=== PATIENT | female | born 1950 | race African-American/Black ===

== ENCOUNTER 2018-08-24 01:09 | Inpatient (IN) | payer MEDICARE ==
[~2018-08-24] VITALS: Ht 165.1 cm; Wt 55.8 kg
--- NOTE | 2018-08-24 01:30 | NUR ---
PT BIBRA FROM [facility] C/O BILAT' EYE PAIN X 1 DAY, AND BACK PAIN, VS STABLE PLACED ON ER BED 4, AWAITING FOR EVAL.
--- NOTE | 2018-08-24 01:50 | NUR ---
SEEN AND EVAL DONE BY ER DR KAPLAN ORDERS ENTERED.
[2018-08-24] MEDS ORDERED: methylPREDNISolone SOD SUCC 125 MG/2ML VIAL IV ONE (02:00)
[2018-08-24] MEDS ORDERED: methylPREDNISolone SOD SUCC 125 MG/2ML VIAL ONE (02:19)
[2018-08-24 02:42] LABS: BASOPHILS # (AUTO) 0.1 /CMM (0.0-0.2); BASOPHILS % (AUTO) 0.6 % (0.0-2.0); EOSINOPHILS % (AUTO) 0.8 % (0.0-6.0); HEMATOCRIT 33 % (33-45); HEMOGLOBIN 10.8 g/dL (11.5-14.8); LYMPHOCYTES # (AUTO) 1.7 /CMM (0.8-4.8); LYMPHOCYTES % (AUTO) 15.8 % (20.0-44.0); MEAN CORPUSCULAR HGB CONC 33 g/dl (31.0-36.0); MEAN CORPUSCULAR VOLUME 96 fL (82-100); MONOCYTES # (AUTO) 1.4 /CMM (0.1-1.30); NEUTROPHILS # (AUTO) 7.6 /CMM (1.8-8.9); NEUTROPHILS % (AUTO) 69.8 % (43.0-81.0); PLATELET COUNT (AUTO) 365 /CMM (150-450); RED BLOOD CELL COUNT(AUTO) 3.46 MIL/uL (4.0-5.2); WHITE BLOOD COUNT (AUTO) 10.9 K/uL (4.3-11.0)
[2018-08-24 02:45] LABS: CALCIUM, SERUM 8.6 mg/dL (8.5-10.1); CARBON DIOXIDE 23 mmol/L (21-32); CHLORIDE 105 mmol/L (98-107); CREATININE 1.7 mg/dL (0.6-1.3); GLUCOSE 106 mg/dL (74-106); POTASSIUM 3.6 mmol/L (3.5-5.1); SODIUM SERUM 141 mmol/L (136-145); UREA NITROGEN, BLOOD 52 mg/dL (7-18)
--- NOTE | 2018-08-24 02:50 | NUR ---
PATIENT TBA TELE 316-2.
[2018-08-24 03:00] LABS: ALANINE AMINOTRANSFERASE 30 U/L (12-78); ALBUMIN 3.3 g/dL (3.4-5.0); ALKALINE PHOSPHATASE 112 U/L (46-116); ASPARTATE AMINOTRANSFERASE 31 U/L (15-37); B-TYPE NATRIURETIC PEPTIDE 9391 PG/ML (0-125); BILIRUBIN,DIRECT 0.2 mg/dL (0.0-0.2); BILIRUBIN,TOTAL 0.5 mg/dL (0.2-1.0); TOTAL PROTEIN, SERUM 7.7 g/dL (6.4-8.2)
[2018-08-24] MEDS ORDERED: IV NS 0.9% 1,000 ML IV SCH (03:00)
[2018-08-24] MEDS ORDERED: MAGNESIUM HYDROXIDE 30 ML UDC PO PRN (03:00)
[2018-08-24] MEDS ORDERED: MAG HYDROX/AL HYDROX/SIMETH 30 ML UDC PO PRN (03:00)
[2018-08-24] MEDS ORDERED: Z GUARD REMEDY 2 OZ OINT TP PRN (03:00)
[2018-08-24] MEDS ORDERED: ACETAMINOPHEN 325 MG TABLET PO PRN (03:00)
--- NOTE | 2018-08-24 04:12 | NUR ---
CALLED FOR REPORT GIVEN TO [facility] ADMITTING, NOTIFIED NO IV ACCESS, ER DR KAPLAN CALLED DR BOYLE FOR MIDLINE INSERTION.
--- NOTE | 2018-08-24 04:45 | NUR ---
DR BOYLE CALLED BACK OKAY TO TRANSFER PT WITHOUT IV LINE, MIDLINE IN AM, WILL ENDORSE TO F/U.
[2018-08-24] MEDS ORDERED: CEFTRIAXONE 1 G VIAL ONE (04:52)
[2018-08-24] MEDS ORDERED: LIDOCAINE 1% INJ 50 ML MDV IJ ONE (04:53)
[2018-08-24] MEDS ORDERED: LIDOCAINE /MPF 1% VIAL 5 ML VIAL ONE (04:54)
[2018-08-24] MEDS ORDERED: CEFTRIAXONE 1 G VIAL IM SCH (05:00)
[2018-08-24] MEDS ORDERED: FUROSEMIDE 40 MG/4 ML VIAL IV STA (06:28)
[2018-08-24] MEDS ORDERED: METRONIDAZOLE 500MG/ NS 100ML 100 ML IV ONE ×2 (06:30→06:44)
[2018-08-24] MEDS: AZITHROMYCIN 500 MG in IV D5W 250 ML IV SCH (06:30)
[2018-08-24] MEDS ORDERED: FUROSEMIDE 40 MG/4 ML VIAL ONE (06:44)
[2018-08-24] MEDS ORDERED: AZITHROMYCIN 500 MG VIAL ONE (06:44)
--- NOTE | 2018-08-24 06:50 | NUR ---
PT TAKEN TO XR CHEST.
[2018-08-24 06:55] LABS: ABG BASE EXCESS -4.3 mmol/L; ABG OXYGEN SATURATION 93.8 % (92.0-98.5); ABG PCO2 43.5 mmHg (35.0-45.0); ABG PH 7.315 (7.350-7.450); ABG PO2 102.8 mmHg (75.0-100.0); AaDO2 74.5 mmHg; COHb 0.3 % (0.5-1.5); MetHb 0.2 % (0.0-1.5); O2Hb 93.3 % (94.0-97.0); SITE, ABG Right Radial; VENT MODE, BG NC 3L
--- NOTE | 2018-08-24 07:08 | NUR ---
PTBROUGHT BACK FROM XR CHEST FOR CENTRAL LINE PLACEMENT CONFIRMATION, AWAITING MD TO READ IMAGES.
--- NOTE | 2018-08-24 07:35 | NUR ---
REPORT GIVEN TO ED FOR TOSHIA.
--- NOTE | 2018-08-24 07:41 | NUR ---
CENTRAL LINE PLACEMENT CONFIRMED BY XR CHEST AT BEDSIDE.
[2018-08-24] MEDS ORDERED: DIPH25CA6 PO (07:49)
[2018-08-24] MEDS ORDERED: DICL100G16 TP (07:49)
[2018-08-24] MEDS ORDERED: DUEXIS PO (07:49)
[2018-08-24] MEDS ORDERED: OXYC30TA86 PO (07:49)
[2018-08-24] MEDS ORDERED: METO25TA20 PO (07:49)
[2018-08-24] MEDS ORDERED: POTA10TA15 PO (07:49)
[2018-08-24] MEDS ORDERED: LORA1TAB PO (07:49)
[2018-08-24] MEDS ORDERED: OXYC-128 PO (07:49)
[2018-08-24] MEDS ORDERED: LATA2.5D7 EACHEYE (07:49)
[2018-08-24] MEDS ORDERED: ZOLP5TAB8 PO (07:49)
[2018-08-24] MEDS ORDERED: MIRT45TA83 PO (07:49)
[2018-08-24] MEDS ORDERED: DIFL5DRO OP (07:49)
[2018-08-24] MEDS ORDERED: OXYC-133 PO (07:49)
[2018-08-24] MEDS ORDERED: HYDR59LO5 TP (07:49)
[2018-08-24] MEDS ORDERED: LACT1CAP71 PO (07:49)
[2018-08-24] MEDS ORDERED: PROM25TA15 PO (07:49)
[2018-08-24] MEDS ORDERED: CODE118S4 PO (07:49)
[2018-08-24] MEDS ORDERED: DRON10CA8 PO (07:49)
[2018-08-24] MEDS ORDERED: DULO60CA63 PO (07:49)
[2018-08-24] MEDS ORDERED: NEPA1.7D OP (07:49)
[2018-08-24] MEDS ORDERED: MULT-1210 PO (07:49)
[2018-08-24] MEDS ORDERED: MAGN400T26 PO (07:49)
[2018-08-24] MEDS ORDERED: METH20TA9 PO (07:49)
[2018-08-24] MEDS ORDERED: CARI350T27 PO (07:49)
[2018-08-24] MEDS ORDERED: FLUO15CR2 TP (07:49)
[2018-08-24] MEDS ORDERED: ONDA4TAB5 PO (07:49)
[2018-08-24] MEDS ORDERED: LIDO30CR47 TP (07:49)
[2018-08-24] MEDS ORDERED: FURO-145 PO (07:49)
[2018-08-24] MEDS ORDERED: GABA-534 PO (07:49)
[2018-08-24 08:00] VITALS: BP 145/83
--- NOTE | 2018-08-24 08:15 | NUR ---
ENDORSED THE FLAGYL TO SHANDA HAINES AND TOSHIA.
--- NOTE | 2018-08-24 08:15 | NUR ---
DIRECTOR CUSTOMER NOTES RECEIVED PT FROM E.R. STAFF VIA [facility], PT IS AWAKE AND ALERT, VERBALLY RESPONSIVE, ASSISTED TO BED, MADE COMFORTABLE, NO COMPLAINT OF PAIN, RESPIRATIONS NORMAL AND NOT LABORED, PLACED ON O2 AT 2LPM , ROOM SET UP ORIENTATION PROVIDED TO PT, VERBALIZED UNDERSTANDING, CENTRAL LINE AT RIGHT IJ INTACT, NO BLEEDING NOTED, CALL LIGHT PLACED WITHIN REACH, TELEPHONE UNIT PROVIDED TO PT, ASSISTED WITH BEDPAN, KEPT COMFORTABLE.
[2018-08-24] MEDS: MIRTAZAPINE 45 MG TABLET PO SCH ×2 (09:00→21:26)
[2018-08-24] MEDS ORDERED: FUROSEMIDE 40 MG/4 ML VIAL IV SCH (09:00)
--- NOTE | 2018-08-24 09:00 | NUR ---
SCIENCE AND OPERATIONS OFFICER NOTES SHAYYN SCHEDULED AT , PHARMACY TO CHANGE TIME.
[2018-08-24] MEDS: CODEINE/PROMETHAZINE HCL 5 ML UDC PO PRN ×2 (10:31→18:57)
[2018-08-24] MEDS: CARISOPRODOL 350 MG TABLET PO SCH ×4 (10:34→21:26)
[2018-08-24] MEDS: GABAPENTIN 300 MG CAPSULE PO SCH ×2 (10:34→16:12)
[2018-08-24] MEDS: METOPROLOL TARTRATE 25 MG TABLET PO SCH ×2 (10:39→16:21)
[2018-08-24] MEDS: IV NS 0.9% 1,000 ML IV PRN ×2 (11:39→21:27)
[2018-08-24 12:00] VITALS: BP 120/77
--- NOTE | 2018-08-24 12:00 | NUR ---
SENIOR PHARMACY TECHNICIAN NOTES PT IN BED, ASLEEP, EASY TO AROUSE, ALERT AND ORIENTED, SWELLING TO LIPS AND ORBITAL AREA SUBSIDING, IV FLUIDS INFUSING WELL, SEEN BY DR. RIVERA, PLAN OF CARE DISCUSSED WITH PT, VERBALIZED UNDERSTANDING.
[2018-08-24] MEDS: methylPREDNISolone SOD SUCC 40 MG/ML VIAL IV SCH (12:34)
[2018-08-24] MEDS: DRONABINOL (2.5 MG) 2.5 MG CAPSULE PO SCH ×2 (12:34→16:12)
[2018-08-24] MEDS: ONDANSETRON HCL/PF 4 MG/2 ML VIAL IVP PRN (12:45)
[2018-08-24] MEDS: LATANOPROST EYE DROP 0.005% 2.5 ML BOTTLE EACHEYE SCH ×2 (15:53→21:27)
[2018-08-24 16:00] VITALS: BP 126/78
--- NOTE | 2018-08-24 18:23 | NUR ---
RN MS CLOSING NOTES Patient remains in bed, sleeping but easy to arouse, alert awake and oriented. No sob or ventilatory distress noted, patient denies pain. IV fluids infusing well, patient able to verbalize needs and wants. Call light within reach.
[2018-08-24] MEDS: HYDROCODONE/APAP 5/325MG 1 EACH TABLET PO PRN (18:47)
--- NOTE | 2018-08-24 19:30 | NUR ---
ADMINISTRATIVE MANAGER NOTE: PATIENT RESTING IN BED, NO ACUTE DISTRESS NOTED. BREATHING EVEN AND UNLABORED, NO SOB NOTED. IV TO RIJ IN PLACE. BED LOCKED AND IN LOWEST POSITION, CALL LIGHT IN REACH. WILL CONTINUE TO MONITOR.
[2018-08-24] MEDS: oxyCODONE HCL SR 10MG TAB.SR.12H PO SCH (21:26)
[2018-08-24] MEDS ORDERED: ZOLPIDEM TARTRATE 5 MG TABLET PO SCH (22:00)
[2018-08-25] VITALS: BP 122/55
[2018-08-25 04:03] VITALS: BP 107/67
[2018-08-25] MEDS: LORAZEPAM 1 MG TABLET PO PRN (04:16)
[2018-08-25] MEDS: ONDANSETRON HCL/PF 4 MG/2 ML VIAL IVP PRN (04:16)
[2018-08-25] MEDS: CEFTRIAXONE 1 G in IV D5W 50 ML IV SCH (04:16)
--- NOTE | 2018-08-25 04:30 | NUR ---
SURFACING TECHNICIAN NOTE: PATIENT COMPLAINS OF NAUSEA AND BEING ANXIOUS, ZOFRAN 4MG IV GIVEN PER MD ORDER AND ATIVAN 1MG ORAL GIVEN PER MD ORDER. WILL CONTINUE TO MONITOR.
[2018-08-25] MEDS: AZITHROMYCIN 500 MG in IV D5W 250 ML IV SCH (05:47)
--- NOTE | 2018-08-25 06:10 | NUR ---
MOLDING SUPERVISOR NOTE: PATIENT RESTING IN BED, NO ACUTE DISTRESS NOTED. BREATHING EVEN AND UNLABORED, NO SOB NOTED. IV TO RIJ IN PLACE, INFUSING NS AT 100ML/HR. BED LOCKED AND IN LOWEST POSITION, CALL LIGHT IN REACH. WILL ENDORSE TO DAY NURSE TO CONTINUE WITH PLAN OF CARE.
[2018-08-25 07:05] LABS: BASOPHILS # (AUTO) 0.1 /CMM (0.0-0.2); BASOPHILS % (AUTO) 0.5 % (0.0-2.0); EOSINOPHILS % (AUTO) 0.3 % (0.0-6.0); HEMATOCRIT 34 % (33-45); HEMOGLOBIN 10.8 g/dL (11.5-14.8); LYMPHOCYTES # (AUTO) 3.3 /CMM (0.8-4.8); LYMPHOCYTES % (AUTO) 25.9 % (20.0-44.0); MEAN CORPUSCULAR HGB CONC 32 g/dl (31.0-36.0); MEAN CORPUSCULAR VOLUME 95 fL (82-100); MONOCYTES # (AUTO) 0.8 /CMM (0.1-1.30); MONOCYTES % (AUTO) 6.7 % (2.0-12.0); NEUTROPHILS # (AUTO) 8.4 /CMM (1.8-8.9); NEUTROPHILS % (AUTO) 66.6 % (43.0-81.0); PLATELET COUNT (AUTO) 354 /CMM (150-450); RED BLOOD CELL COUNT(AUTO) 3.55 MIL/uL (4.0-5.2); WHITE BLOOD COUNT (AUTO) 12.6 K/uL (4.3-11.0)
--- NOTE | 2018-08-25 07:20 | NUR ---
RN OPENING NOTES PT RESTING IN BED. NO APPARENT S/S OF PAIN, DISTRESS OR SOB AT THIS TIME. PT TELE MONITORED AT NSR RATE OF 80. PT HAS A RIGHT IJ IV INTACT AND RUNNING NS @100ML/HR. SAFETY PRECAUTIONS IN PLACE, BED IN LOWEST LOCKED POSITION, X2 SIDE RAILS UP AND CALL LIGHT WITHIN REACH. WILL CONTINUE TO MONITOR.
[2018-08-25 07:21] LABS: CALCIUM, SERUM 8.4 mg/dL (8.5-10.1); PHOSPHORUS 3.4 mg/dL (2.5-4.9); POTASSIUM 3.5 mmol/L (3.5-5.1)
--- NOTE | 2018-08-25 07:51 | NUR ---
RN CLOSING NOTES LATE NOTE: PT RESTING IN BED. NO APPARENT S/S OF PAIN, DISTRESS OR SOB. ALL PT NEEDS MET DURING SHIFT. PAIN MANAGEMENT THROUGH PERCOCET AND NORCO WELL SCHEDULED PAIN MEDICATIONS. PT HAS A RIGHT IJ IV INTACT. SAFETY PRECAUTIONS IN PLACE, BED IN LOWEST LOCKED POSITION, X2 SIDE RAILS UP AND CALL LIGHT WITHIN REACH. WILL ENDORSE TO ADJUNCT NURSING FACULTY NURSE FOR CONTINUITY OF CARE.
[2018-08-25 08:00] VITALS: BP 148/83
[2018-08-25] MEDS: methylPREDNISolone SOD SUCC 40 MG/ML VIAL IV SCH (09:19)
[2018-08-25] MEDS: GABAPENTIN 300 MG CAPSULE PO SCH ×2 (09:21→16:38)
[2018-08-25] MEDS: CARISOPRODOL 350 MG TABLET PO SCH ×4 (09:21→20:54)
[2018-08-25] MEDS: oxyCODONE HCL SR 10MG TAB.SR.12H PO SCH ×2 (09:21→22:38)
[2018-08-25] MEDS: DRONABINOL (2.5 MG) 2.5 MG CAPSULE PO SCH ×3 (09:23→16:38)
[2018-08-25] MEDS: METOPROLOL TARTRATE 25 MG TABLET PO SCH ×2 (09:23→16:34)
[2018-08-25] MEDS: CODEINE/PROMETHAZINE HCL 5 ML UDC PO PRN ×2 (11:07→21:04)
[2018-08-25] MEDS ORDERED: PROMETHAZINE HCL 25 MG TABLET PO PRN (12:00)
[2018-08-25] MEDS ORDERED: diphenhydrAMINE HCL 25 MG CAPSULE PO PRN (12:00)
[2018-08-25] MEDS ORDERED: oxyCODONE/APAP (5/325 MG) 1 UDTAB TABLET PO PRN (12:00)
[2018-08-25] MEDS ORDERED: ONDANSETRON HCL 4 MG/5 ML SOLUTION PO PRN (12:00)
[2018-08-25] MEDS: MAGNESIUM OXIDE 400 MG TABLET PO SCH (12:54)
[2018-08-25] MEDS: METHYLPHENIDATE HCL (10MG) 10 MG TABLET PO SCH ×2 (13:00→16:32)
--- NOTE | 2018-08-25 13:00 | NUR ---
RN NOTES CALLED PHARMACY TO FOLLOW UP WITH RITALIN ORDER. PER PHARMACY IT IS NOT STOCKED AT THIS HOSPITAL. MADE DR ZAPATA AWARE. WILL CONTINUE TO FOLLOW UP.
[2018-08-25 16:00] VITALS: BP 111/66
[2018-08-25] MEDS: oxyCODONE/APAP (5/325 MG) 1 UDTAB TABLET PO PRN (18:57)
--- NOTE | 2018-08-25 19:45 | NUR ---
MS RN NOTES RECEIVED ON BED A/O X4,ABLE TO VERBALIZED NEEDS,NOTED 75 TO 80% OF DINNER FOOD CONSUMED.WITH RIGHT IJ IN PLACE,INTACT AND PATENT,NS AT TKO RATE IN PROGRESS.BED ON LOWEST POSITION AND LOCKED.CALL LIGHT IN REACH,NEEDS ANTICIPATED.
[2018-08-25 20:00] VITALS: BP_SYST 106; BP_DIAS 53; BP_DIAS 55
--- NOTE | 2018-08-25 21:04 | NUR ---
MS RN NOTES C/O COUGH,PHENERGAN WITH CODEINE 5ML PO GIVEN ORDERED
[2018-08-25] MEDS: ZOLPIDEM TARTRATE 5 MG TABLET PO PRN (22:13)
[2018-08-25] MEDS: DULOXETINE HCL 30 MG CAPSULE.DR PO SCH (22:13)
[2018-08-25] MEDS: MIRTAZAPINE 45 MG TABLET PO SCH (22:13)
--- NOTE | 2018-08-25 22:13 | NUR ---
MS RN NOTES C/O INSOMNIA,AMBIEN 5MG PO GIVEN ORDERED.
[2018-08-25] MEDS: LATANOPROST EYE DROP 0.005% 2.5 ML BOTTLE EACHEYE SCH (22:35)
--- NOTE | 2018-08-26 02:00 | NUR ---
MS RN NOTES SLEEPING,KEPT WARM AND COMFORTABLE.
[2018-08-26] MEDS: CEFTRIAXONE 1 G in IV D5W 50 ML IV SCH (05:04)
--- NOTE | 2018-08-26 06:07 | NUR ---
MS RN NOTES IVF INFUSING,PAIN MANAGEMENT EFFECTIVE,POSSIBLE D/C TO [facility],DOESNT WANT TO GO BACK TO [facility].WILLL ENDORSE TO DAY NURSE FOR TOSHIA.
[2018-08-26] MEDS: AZITHROMYCIN 500 MG in IV D5W 250 ML IV SCH (06:17)
--- NOTE | 2018-08-26 06:44 | NUR ---
WOUND CARE CONSULT WOUND CARE RECEIVED CONSULT FOR RIGHT BIG TOE DISCOLORATION AND SWELLING. WOUND CARE WILL DEFER CONSULT AND TREATMENT PLANS TO PLASTIC SURGICAL TEAM WELL DPM DR HILL WHO ARE ALL CURRENTLY FOLLOWING THIS PATIENT. PATIENT WITH RYDER AT 18, ALL PRESSURE ULCER PREVENTION MEASURES ARE NOTED TO BE IN PLACE. WILL SEE PRN.
[2018-08-26] MEDS: CODEINE/PROMETHAZINE HCL 5 ML UDC PO PRN ×2 (06:59→23:00)
--- NOTE | 2018-08-26 07:00 | NUR ---
RN OPENING NOTES PT RESTING IN BED. NO APPARENT S/S OF PAIN, DISTRESS OR SOB AT THIS TIME. WILL CONTINUE PT PAIN MANAGEMENT. PT HAS A RIGHT IJ IV INTACT. SAFETY PRECAUTIONS IN PLACE, BED IN LOWEST LOCKED POSITION, X2 SIDE RAILS UP AND CALL LIGHT WITHIN REACH. WILL CONTINUE TO MONITOR.
[2018-08-26 08:00] VITALS: BP 134/93
[2018-08-26] MEDS: DRONABINOL (2.5 MG) 2.5 MG CAPSULE PO SCH ×3 (08:43→17:11)
[2018-08-26] MEDS: GABAPENTIN 300 MG CAPSULE PO SCH ×2 (08:43→17:12)
[2018-08-26] MEDS: methylPREDNISolone SOD SUCC 40 MG/ML VIAL IV SCH (08:43)
[2018-08-26] MEDS: CARISOPRODOL 350 MG TABLET PO SCH ×4 (08:43→20:28)
[2018-08-26] MEDS: MAGNESIUM OXIDE 400 MG TABLET PO SCH (08:44)
[2018-08-26] MEDS: oxyCODONE HCL SR 10MG TAB.SR.12H PO SCH ×2 (08:46→20:29)
[2018-08-26] MEDS: METOPROLOL TARTRATE 25 MG TABLET PO SCH ×2 (08:47→17:00)
[2018-08-26] MEDS: METHYLPHENIDATE HCL (10MG) 10 MG TABLET PO SCH ×3 (09:00→17:00)
[2018-08-26] MEDS: LORAZEPAM 1 MG TABLET PO PRN (12:31)
--- NOTE | 2018-08-26 14:17 | NUR ---
RN NOTES PER CASE MANAGEMENT REQUESTING FOR PSYCH EVAL, FOLLOWED UP WITH KELLE DUBON. PER JAGDISH OKAY TO ORDER EVAL.
--- NOTE | 2018-08-26 14:21 | NUR ---
RN NOTES PT REQUESTED PRN ATIVAN, ADMINISTERED WILL CONTINUE TO MONITOR.
[2018-08-26] MEDS: oxyCODONE/APAP (5/325 MG) 1 UDTAB TABLET PO PRN (14:27)
[2018-08-26 16:00] VITALS: BP 112/70
--- NOTE | 2018-08-26 18:59 | NUR ---
RN CLOSING NOTES PT RESTING IN BED. NO APPARENT S/S OF PAIN, DISTRESS OR SOB. ALL PT NEEDS MET DURING SHIFT. PAIN MANAGEMENT THROUGH PERCOCET WELL SCHEDULED PAIN MEDICATIONS. PT HAS A RIGHT IJ IV INTACT. SAFETY PRECAUTIONS IN PLACE, BED IN LOWEST LOCKED POSITION, X2 SIDE RAILS UP AND CALL LIGHT WITHIN REACH. WILL ENDORSE TO CARTON FORMING MACHINE OPERATOR NURSE FOR CONTINUITY OF CARE.
--- NOTE | 2018-08-26 19:40 | NUR ---
MS RN NOTES RECEIVED PATIENT AWAKE IN BED AND WATCHING TV WITH NO DISTRESS NOTED. CALL LIGHT WITHIN REACH. NO C/O PAIN OR DISCOMFORT. RIGHT IJ INTACT AND PATENT. BED IN LOW LOCK SETTING. ROOM FREE OF CLUTTER AND ALL BELONGINGS KEPT NEAR BEDSIDE. WILL CONTINUE TO MONITOR.
[2018-08-26 20:02] VITALS: BP 104/60
[2018-08-26] MEDS: ONDANSETRON HCL/PF 4 MG/2 ML VIAL IVP PRN (20:34)
[2018-08-26] MEDS: MIRTAZAPINE 45 MG TABLET PO SCH (21:38)
[2018-08-26] MEDS: DULOXETINE HCL 30 MG CAPSULE.DR PO SCH (21:38)
[2018-08-26] MEDS: LATANOPROST EYE DROP 0.005% 2.5 ML BOTTLE EACHEYE SCH (21:39)
[2018-08-26] MEDS: ZOLPIDEM TARTRATE 5 MG TABLET PO PRN (22:14)
[2018-08-27] MEDS: CEFTRIAXONE 1 G in IV D5W 50 ML IV SCH (04:18)
[2018-08-27] MEDS: AZITHROMYCIN 500 MG in IV D5W 250 ML IV SCH (05:46)
--- NOTE | 2018-08-27 06:23 | NUR ---
MS RN NOTES PATIENT ASLEEP IN BED WITH NO DISTRESS NOTED. CALL LIGHT WITHIN REACH. CENTRAL LINE INTACT AND PATENT. NO FURTHER C/O PAIN OR DISCOMFORT. ALL DUE MEDS GIVEN ORDERED WITH NO ASE NOTED. BED IN LOW LOCK SETTING. BED ALARM ON AND FUNCTIONING PROPERLY. ROOM FREE OF CLUTTER AND ALL BELONGINGS KEPT NEAR BEDSIDE. WILL ENDORSE TO ONCOMING SHIFT.
[2018-08-27] MEDS: CODEINE/PROMETHAZINE HCL 5 ML UDC PO PRN (06:27)
[2018-08-27 07:54] VITALS: BP 149/81
--- NOTE | 2018-08-27 08:00 | NUR ---
RN NOTES RECEIVED PATIENT IN THE BED A/O X3/4, PATIENT WAS COMPLAINING OF PAIN GENERALIZED 03/03, ALSO WAS COMPLAINING OF COUGHING. PATIENT HAS NO ACUTE RESPIRATORY DISTRESS, V/S STABLE, ADMINISTERED SCHEDULED MEDICATION, ASSIST PATIENT USE BED SIDE COMMODE. PATIENT HAS IV ACCESS ON IJ INTACT. CALL LIGHT WITHIN TO REACH, SAFETY PRECAUTION MAINTAINED ALL THE TIME.
[2018-08-27] MEDS: GABAPENTIN 300 MG CAPSULE PO SCH (08:28)
[2018-08-27] MEDS: CARISOPRODOL 350 MG TABLET PO SCH ×4 (08:28→21:01)
[2018-08-27] MEDS: DRONABINOL (2.5 MG) 2.5 MG CAPSULE PO SCH ×3 (08:28→16:39)
[2018-08-27] MEDS: MAGNESIUM OXIDE 400 MG TABLET PO SCH (08:28)
[2018-08-27] MEDS: METOPROLOL TARTRATE 25 MG TABLET PO SCH ×2 (08:29→16:33)
[2018-08-27] MEDS: methylPREDNISolone SOD SUCC 40 MG/ML VIAL IV SCH (08:29)
[2018-08-27] MEDS: oxyCODONE HCL SR 10MG TAB.SR.12H PO SCH ×2 (08:41→21:00)
[2018-08-27] MEDS: METHYLPHENIDATE HCL (10MG) 10 MG TABLET PO SCH ×3 (08:55→16:34)
[2018-08-27 09:00] VITALS: BP 149/81
[2018-08-27] MEDS: LORAZEPAM 1 MG TABLET PO PRN (11:07)
--- NOTE | 2018-08-27 11:07 | NUR ---
rn notes administered Ativan 1 mg po prn for anxiety per patient request, v/s taken bp-118/65, p- 71, continued monitoring.
[2018-08-27] MEDS: ALPRAZOLAM 0.25 MG TABLET PO PRN ×2 (12:48→21:02)
[2018-08-27] MEDS: ONDANSETRON HCL/PF 4 MG/2 ML VIAL IVP PRN (12:48)
--- NOTE | 2018-08-27 12:48 | NUR ---
RN NOTES Administered Zofran 4mg/2ml via IV push per Patients request for nausea. Xanax administered 0.5mg PO PRN per Patients request for anxiety. Ativan ineffective. Call light within reach. Will continue to monitor.
[2018-08-27 16:00] VITALS: BP 103/51
[2018-08-27] MEDS: LACTOBACILLUS RHAMNOSUS GG 1 EACH CAP.SPRINK PO SCH (16:39)
[2018-08-27 17:23] LABS: BASOPHILS # (AUTO) 0.1 /CMM (0.0-0.2); BASOPHILS % (AUTO) 1.2 % (0.0-2.0); HEMATOCRIT 32 % (33-45); HEMOGLOBIN 10.3 g/dL (11.5-14.8); LYMPHOCYTES # (AUTO) 1.6 /CMM (0.8-4.8); LYMPHOCYTES % (AUTO) 12.5 % (20.0-44.0); MEAN CORPUSCULAR HGB CONC 32 g/dl (31.0-36.0); MEAN CORPUSCULAR VOLUME 96 fL (82-100); MONOCYTES # (AUTO) 0.5 /CMM (0.1-1.30); NEUTROPHILS # (AUTO) 10.6 /CMM (1.8-8.9); NEUTROPHILS % (AUTO) 82.3 % (43.0-81.0); PLATELET COUNT (AUTO) 415 /CMM (150-450); RED BLOOD CELL COUNT(AUTO) 3.37 MIL/uL (4.0-5.2); WHITE BLOOD COUNT (AUTO) 12.8 K/uL (4.3-11.0)
[2018-08-27 17:32] LABS: CALCIUM, SERUM 8.8 mg/dL (8.5-10.1); CREATININE 0.8 mg/dL (0.6-1.3); POTASSIUM 4.3 mmol/L (3.5-5.1)
[2018-08-27] MEDS ORDERED: GABAPENTIN 300 MG CAPSULE PO SCH (18:00)
[2018-08-27] MEDS: HYDROCODONE/APAP 5/325MG 1 EACH TABLET PO PRN (18:31)
--- NOTE | 2018-08-27 18:31 | NUR ---
rn notes administered narco 5/325 mg po prn for generalized pain 01/31 per patient request, v/s stable, continued monitoring.
--- NOTE | 2018-08-27 18:45 | NUR ---
RN NOTES Pain medication administered effective. Patient stable with no acute respiratory distress. Call light within reach. Will endorse to on coming nurse plan of care.
[2018-08-27 20:00] VITALS: BP 103/62
[2018-08-27] MEDS: MIRTAZAPINE 45 MG TABLET PO SCH (21:26)
[2018-08-27] MEDS: LATANOPROST EYE DROP 0.005% 2.5 ML BOTTLE EACHEYE SCH (21:26)
[2018-08-27] MEDS: DULOXETINE HCL 30 MG CAPSULE.DR PO SCH (21:26)
--- NOTE | 2018-08-27 21:26 | NUR ---
ms shady notes routine meds given as ordered per pt requested to give it to her earlier. snacks also served. refused to have her oxycontin tablet for now. denies any pain at this time. educate about her medication and pt understood well. will continue monitoring. place call light at reach.
[2018-08-28] MEDS: ZOLPIDEM TARTRATE 5 MG TABLET PO PRN (00:15)
[2018-08-28] MEDS: CEFTRIAXONE 1 G in IV D5W 50 ML IV SCH (05:34)
[2018-08-28] MEDS: AZITHROMYCIN 500 MG in IV D5W 250 ML IV SCH (06:20)
[2018-08-28] MEDS: HYDROCODONE/APAP 5/325MG 1 EACH TABLET PO PRN ×2 (06:49→12:03)
[2018-08-28] MEDS: ALPRAZOLAM 0.25 MG TABLET PO PRN (06:55)
--- NOTE | 2018-08-28 07:05 | NUR ---
MS DIE FORGER CLOSING OTES PT WOKE UP AND ASKING FOR HER PAIN MEDICATION NORCO TABLET FOR HER GENERALIZED PAIN 10/10. SHE ALSO ASKING FOR HER XANAX TABLET FOR HER ANXIETY . NO SIGNS OF ANY ACUTE DISTRESS NOTED. KEPT HER WARM AND COMFORTABLE AT ALL TIMES. ALL DUE MEDS GIVEN AND ALL NEEDS MET. SLEPT WELL AND STABLE BHAVESH THE NIGHT. WILL ENDORSE TO AM NURSE FOR CONTINUITY OF CARE. PLACE CALL LIGHT AT REACH.
--- NOTE | 2018-08-28 07:32 | NUR ---
RN OPENING NOTE PT WAS RECEIVED SLEEPING IN BED AT LOWEST AND LOCKED POSITION WITH SIDE RAILS UPX2, A/OX4, BREATHING EVEN AND UNLABORED ON RA, NO S/S OF PAIN OR DISTRESS NOTED, NOTED TO HAVE JUST RECEIVED NORCO AND XANAX FROM QUALITY CONTROL ENGINEERING TECHNICIAN NURSE, IV IS PATENT AND INTACT, SAFETY PRECAUTIONS IN PLACE, CALL LIGHT WITHIN REACH, WILL MONITOR ACCORDINGLY
[2018-08-28 08:00] VITALS: BP 155/98
[2018-08-28 08:25] VITALS: BP 155/98
[2018-08-28] MEDS: CARISOPRODOL 350 MG TABLET PO SCH ×2 (08:25→12:02)
[2018-08-28] MEDS: MAGNESIUM OXIDE 400 MG TABLET PO SCH (08:25)
[2018-08-28] MEDS: LACTOBACILLUS RHAMNOSUS GG 1 EACH CAP.SPRINK PO SCH (08:25)
[2018-08-28] MEDS: METOPROLOL TARTRATE 25 MG TABLET PO SCH (08:25)
[2018-08-28] MEDS: oxyCODONE HCL SR 10MG TAB.SR.12H PO SCH (08:26)
[2018-08-28] MEDS: methylPREDNISolone SOD SUCC 40 MG/ML VIAL IV SCH (08:26)
[2018-08-28] MEDS: METHYLPHENIDATE HCL (10MG) 10 MG TABLET PO SCH ×2 (08:26→12:03)
[2018-08-28] MEDS: DRONABINOL (2.5 MG) 2.5 MG CAPSULE PO SCH ×2 (08:49→12:02)
[2018-08-28] MEDS: ONDANSETRON HCL/PF 4 MG/2 ML VIAL IVP PRN (08:53)
[2018-08-28] MEDS: CODEINE/PROMETHAZINE HCL 5 ML UDC PO PRN (09:00)
[2018-08-28 09:44] LABS: BASOPHILS % (AUTO) 0.4 % (0.0-2.0); EOSINOPHILS % (AUTO) 0.5 % (0.0-6.0); HEMATOCRIT 33 % (33-45); HEMOGLOBIN 10.7 g/dL (11.5-14.8); LYMPHOCYTES # (AUTO) 2.9 /CMM (0.8-4.8); LYMPHOCYTES % (AUTO) 23.3 % (20.0-44.0); MEAN CORPUSCULAR HGB CONC 32 g/dl (31.0-36.0); MEAN CORPUSCULAR VOLUME 95 fL (82-100); MONOCYTES # (AUTO) 0.8 /CMM (0.1-1.30); MONOCYTES % (AUTO) 6.2 % (2.0-12.0); NEUTROPHILS # (AUTO) 8.7 /CMM (1.8-8.9); NEUTROPHILS % (AUTO) 69.6 % (43.0-81.0); PLATELET COUNT (AUTO) 417 /CMM (150-450); WHITE BLOOD COUNT (AUTO) 12.5 K/uL (4.3-11.0)
[2018-08-28 09:50] LABS: CALCIUM, SERUM 8.4 mg/dL (8.5-10.1); CREATININE 0.7 mg/dL (0.6-1.3); POTASSIUM 3.7 mmol/L (3.5-5.1)
[2018-08-28] MEDS ORDERED: PRED5TAB48 PO (10:17)
[2018-08-28] MEDS ORDERED: GABA300C PO (10:17)
[2018-08-28] MEDS ORDERED: CEFT1FRO2 IV (10:17)
[2018-08-28] MEDS ORDERED: AZIT250T13 PO (10:17)
[2018-08-28] MEDS ORDERED: PRED20TA PO (10:17)
--- NOTE | 2018-08-28 11:11 | NUR ---
RN NOTE SKIN WOUNDS WERE PHOTOGRAPHED AND PLACED IN THE CHART AT THIS TIME
--- NOTE | 2018-08-28 12:28 | NUR ---
RN NOTE REPORT GIVEN TO EULA AT [facility]
--- NOTE | 2018-08-28 12:58 | NUR ---
DISCHARGE NOTE PATIENT IS BEING DISCHARGED AT THIS TIME IN MEDICALLY STABLE CONDITION TO [facility] WHERE REPORT WAS GIVEN TO EULA AT [facility]. DISCHARGE PAPERWORK, EXITCARE, AND BELONGING LIST WERE DISCUSSED, SIGNED, AND HANDED TO THE PATIENT AND EMT CREW. PATANTWON LEFT WITH ALL BELONGINGS AT THIS TIME. PT IS LEAVING WITH A 24 GAUGE IV IN HER LEFT HAND SINCE SHE WILL CONTINUE RECEIVING IV ABX AT THE SNF FOR 3 MORE DAYS, ID BAND WAS REMOVED. SKIN WOUNDS PHOTOS WERE TAKEN AND DOCUMENTED IN THE CHART. ALL NEEDS WERE ATTENDED TO DURING HER STAY. PT WAS TAKEN DOWN BY THE EMT CREW AT THIS TIME WHERE THEY WILL DEPART TO [facility].
== END 2018-08-28 13:28 | DRG 291 ==
LOC: ER 01:13 → TELE 03:13 → MED 08-25 08:51
PROVIDERS: ADMIT Internal Medicine; ATTEND Nurse Practitioner Acute Care
PROC: 02H633Z Insertion of Infusion Device into Right Atrium, Percutaneous Approach (ICD-10-PCS; principal; 2018-08-24)
PROC: B244ZZZ Ultrasonography of Right Heart (ICD-10-PCS; 2018-08-24)
DX: I13.0 Hypertensive heart and chronic kidney disease with heart failure and stage 1 through stage 4 chronic kidney disease, or unspecified chronic kidney disease (principal); J15.9 Unspecified bacterial pneumonia; N17.0 Acute kidney failure with tubular necrosis; I50.33 Acute on chronic diastolic (congestive) heart failure; E44.1 Mild protein-calorie malnutrition; N18.9 Chronic kidney disease, unspecified; D63.8 Anemia in other chronic diseases classified elsewhere; T78.40XA Allergy, unspecified, initial encounter; X58.XXXA Exposure to other specified factors, initial encounter; Z86.73 Personal history of transient ischemic attack (TIA), and cerebral infarction without residual deficits; L60.3 Nail dystrophy; M20.40 Other hammer toe(s) (acquired), unspecified foot; T38.0X5A Adverse effect of glucocorticoids and synthetic analogues, initial encounter; F41.9 Anxiety disorder, unspecified; F19.90 Other psychoactive substance use, unspecified, uncomplicated; R22.0 Localized swelling, mass and lump, head
CPT/HCPCS: 36415; 36600; 70450-TC; 71045-TC; 73630-TC; 80048-TC; 80061-TC; 80076-TC; 83605-TC; 83735-TC; 83880; 84100-TC; 84484-TC; 85025-TC; 87040-TC; 87081-TC; 93307-TC; C1751; G0378; J0456; J0696; J1940; J2405; J2920; J2930; J3490; J7030; J7050; J7060; Q0162; Q0167; Q0169

== ENCOUNTER 2019-02-14 13:29 | Emergency (ER) | payer MEDICARE, MEDICAID ==
[~2019-02-14] VITALS: Ht 167.6 cm; Wt 61.2 kg
[~2019-02-14 13:29] MED LIST: AZIT250T13 PO; CARI350T27 PO; CEFT1FRO2 IV; CODE118S4 PO; DICL100G16 TP; DIFL5DRO OP; DIPH25CA51 PO; DRON10CA8 PO; DUEXIS PO; DULO60CA64 PO; FLUO15CR2 TP; GABA300C PO; HYDR59LO5 TP; LACT1CAP71 PO; LATA2.5D7 EACHEYE; LIDO30CR47 TP; LORA1TAB PO; MAGN400T26 PO; METH20TA9 PO; METO25TA20 PO; MIRT45TA83 PO; MULT-1210 PO; NEPA1.7D OP; ONDA4TAB5 PO; OXYC-128 PO; OXYC-133 PO; OXYC30TA86 PO; PRED20TA PO; PRED5TAB48 PO; PROM25TA15 PO; ZOLP5TAB8 PO
--- NOTE | 2019-02-14 13:45 | NUR ---
[id number], FROM [facility], C/O NAUSEA x 2 DAYS, NIGHT SWEAT, INTERMITTENT MUSCLE SPASM/CRAMPING. PAIN RADIATES TO BACK. APPEARS SLIGHTLY ANXIOUS. DENIES SOB, DIZZINESS, WEAKNESS. NO ACUTE DISTRESS NOTED. AOX4, AMB, HYPERTENSIVE, RR EVEN AND UNLABORED. MADE COMFORTABLE AND READY FOR EVAL.
--- NOTE | 2019-02-14 14:15 | NUR ---
ASSISTED PT TO BEDPAN. URINE SENT TO STAT LAB
[2019-02-14] MEDS ORDERED: PROMETHAZINE HCL 25 MG TABLET PO STA (14:34)
[2019-02-14] MEDS ORDERED: METOCLOPRAMIDE HCL 10 MG TABLET ONE (14:57)
[2019-02-14] MEDS ORDERED: METOCLOPRAMIDE HCL 10 MG TABLET PO ONE (15:00)
[2019-02-14] MEDS ORDERED: IV NS 0.9% 500 ML BAG IV ONE (15:00)
--- NOTE | 2019-02-14 15:00 | NUR ---
PT IS A HARD STICK. MD NOTIFIED.
[2019-02-14 15:13] LABS: BASOPHILS % (AUTO) 0.4 % (0.0-2.0); EOSINOPHILS % (AUTO) 0.2 % (0.0-6.0); HEMATOCRIT 42 % (33-45); HEMOGLOBIN 13.6 g/dL (11.5-14.8); LYMPHOCYTES # (AUTO) 1.2 /CMM (0.8-4.8); LYMPHOCYTES % (AUTO) 15.4 % (20.0-44.0); MEAN CORPUSCULAR HGB CONC 32 g/dl (31.0-36.0); MEAN CORPUSCULAR VOLUME 90 fL (82-100); MONOCYTES # (AUTO) 0.4 /CMM (0.1-1.30); MONOCYTES % (AUTO) 5.8 % (2.0-12.0); NEUTROPHILS # (AUTO) 5.9 /CMM (1.8-8.9); NEUTROPHILS % (AUTO) 78.2 % (43.0-81.0); PLATELET COUNT (AUTO) 386 /CMM (150-450); RED BLOOD CELL COUNT(AUTO) 4.69 MIL/uL (4.0-5.2); WHITE BLOOD COUNT (AUTO) 7.5 K/uL (4.3-11.0)
[2019-02-14 15:28] LABS: ALANINE AMINOTRANSFERASE 53 U/L (12-78); ALBUMIN 4.2 g/dL (3.4-5.0); ALKALINE PHOSPHATASE 173 U/L (46-116); ASPARTATE AMINOTRANSFERASE 65 U/L (15-37); BILIRUBIN,DIRECT 0.6 mg/dL (0.0-0.2); BILIRUBIN,TOTAL 1.3 mg/dL (0.2-1.0); CALCIUM, SERUM 9.5 mg/dL (8.5-10.1); CARBON DIOXIDE 28 mmol/L (21-32); CHLORIDE 98 mmol/L (98-107); CREATININE 0.9 mg/dL (0.6-1.3); GLUCOSE 115 mg/dL (74-106); LIPASE 123 U/L (73-393); POTASSIUM 3.8 mmol/L (3.5-5.1); SODIUM SERUM 138 mmol/L (136-145); TOTAL PROTEIN, SERUM 8.8 g/dL (6.4-8.2); UREA NITROGEN, BLOOD 18 mg/dL (7-18)
[2019-02-14 15:34] LABS: APPEARANCE,URINE Clear (CLEAR); BILIRUBIN,URINE Negative (NEGATIVE); BLOOD, URINE Moderate Ery/uL (NEGATIVE); COLOR,URINE Yellow (YELLOW); KETONES,URINE 15 (NEGATIVE); LEUKOCYTE ESTERASE ,URINE Negative (NEGATIVE); NITRITE, URINE Negative (NEGATIVE); PROTEIN,URINE >=300 mg/dl (NEGATIVE); UGLUCOSE Negative (NEGATIVE)
[2019-02-14] MEDS ORDERED: CT SWABBABLE VALVE TRANS SET 1 EA INFUS.SET MC ONE (15:37)
[2019-02-14] MEDS ORDERED: IOHEXOL-300 100 ML VIAL IV ONE (15:37)
[2019-02-14] MEDS ORDERED: IV NS 0.9% 250 ML IV ONE (15:37)
[2019-02-14 15:45] LABS: BACTERIA,URINE Rare /HPF (None Seen); SQUAMOUS EPITHELIAL CELL,UR Few /HPF (None Seen); WBC,URINE 0-2 /HPF (0-3)
--- NOTE | 2019-02-14 15:50 | NUR ---
DR ZACARIAS AT BEDSIDE FOR ULTRASOUND GUIDED IV INSERTION
[2019-02-14] MEDS ORDERED: MAGN400O6 PO (15:58)
[2019-02-14] MEDS ORDERED: [UNRECOGNIZED DRUG - CODE] PO (15:58)
[2019-02-14] MEDS ORDERED: LIDO30AD10 TP (15:58)
[2019-02-14] MEDS ORDERED: GABA-532 PO (15:58)
[2019-02-14] MEDS ORDERED: DICL100G16 TP (15:58)
[2019-02-14] MEDS ORDERED: POTA10TA15 PO (15:58)
[2019-02-14] MEDS ORDERED: IBUP-1953 PO (15:58)
[2019-02-14] MEDS ORDERED: OXYC-133 PO (15:58)
[2019-02-14] MEDS ORDERED: MEGE400O4 PO (15:58)
[2019-02-14] MEDS ORDERED: MULT-24 PO (15:58)
[2019-02-14] MEDS ORDERED: CODE10LI PO (15:58)
--- NOTE | 2019-02-14 16:24 | NUR ---
PT TAKEN TO CT VIA [facility]
[2019-02-14] MEDS ORDERED: ONDANSETRON HCL/PF 4 MG/2 ML VIAL ONE (16:58)
[2019-02-14] MEDS ORDERED: HYDROMORPHONE 1 MG/1 ML DISP.SYRIN ONE (16:59)
[2019-02-14] MEDS ORDERED: ONDANSETRON HCL/PF 4 MG/2 ML VIAL IM ONE (17:00)
[2019-02-14] MEDS ORDERED: HYDROMORPHONE 1 MG/1 ML DISP.SYRIN IV ONE (17:00)
[2019-02-14] MEDS ORDERED: oxyCODONE/APAP (5/325 MG) 1 UDTAB TABLET ONE (18:48)
--- NOTE | 2019-02-14 18:59 | NUR ---
Patient discharged to home in stable condition. Written and verbal after care instructions given. Patient verbalizes understanding of instruction.IV removed. Catheter intact and site benign. Pressure and 4x4 applied to site. No bleeding noted. AWAITING TRANSPORT BACK TO SNF
[2019-02-14] MEDS ORDERED: oxyCODONE/APAP (5/325 MG) 1 UDTAB TABLET PO ONE (19:00)
--- NOTE | 2019-02-14 19:16 | NUR ---
NEHA TO [facility] 1999 TRIP#[id number]
[2019-02-14 19:20] VITALS: BP 116/67
--- NOTE | 2019-02-14 21:00 | NUR ---
REPORT GIVEN TO JEFRY EMT UNIT [address], AND [facility].
== END 2019-02-14 21:13 ==
LOC: ER 13:31
DX: R10.9 Unspecified abdominal pain (principal); R11.0 Nausea; I10 Essential (primary) hypertension; M54.5 Low back pain; G89.29 Other chronic pain; Z86.73 Personal history of transient ischemic attack (TIA), and cerebral infarction without residual deficits; Z88.5 Allergy status to narcotic agent; Z88.8 Allergy status to other drugs, medicaments and biological substances; Z88.3 Allergy status to other anti-infective agents
CPT/HCPCS: 36415; 74177; 80048; 80076; 81001; 83690; 84484; 85025; 96372; 96374; 99284; J1170; J2405; J7040; J7050; J8597; Q0169; Q9967; 81000-TC

== ENCOUNTER 2019-03-20 22:23 | Inpatient (IN) | payer MEDICARE, OTHER ==
[~2019-03-20] VITALS: Ht 162.6 cm; Wt 60.8 kg
[~2019-03-20 22:23] MED LIST changes: -AZIT250T13 PO; -CEFT1FRO2 IV; -DIFL5DRO OP; -FLUO15CR2 TP; +GABA-532 PO; -GABA300C PO; -HYDR59LO5 TP; +IBUP-1953 PO; +LIDO30AD10 TP; -LIDO30CR47 TP; +MAGN400O6 PO; +MEGE400O4 PO; -METH20TA9 PO; -MULT-1210 PO; +MULT-24 PO; -NEPA1.7D OP; -OXYC-128 PO; +POTA10TA15 PO; -PRED20TA PO; -PRED5TAB48 PO; -PROM25TA15 PO; +[UNRECOGNIZED DRUG - CODE] PO
--- NOTE | 2019-03-20 22:31 | NUR ---
[facility] FOR "FOUND ALTERED. SNORING RESP. GIVEN NARCAN 2MG" ALERT NOW. VSS. -SOB NOTED. PT AOX2. PT C/O PAIN IN RLQ ABD. PT ON MONITOR IN BED 2. NAD NOTED. RESP EVEN AND UNLABORED. WILL CONTINUE TO MONITOR.
--- NOTE | 2019-03-20 23:07 | NUR ---
PHLEB ABLE TO DRAW BLOOD FROM PT
--- NOTE | 2019-03-20 23:08 | NUR ---
RT AT BEDSIDE FOR ABGs
[2019-03-20 23:15] LABS: BASOPHILS # (AUTO) 0.1 /CMM (0.0-0.2); BASOPHILS % (AUTO) 0.8 % (0.0-2.0); EOSINOPHILS % (AUTO) 1.4 % (0.0-6.0); HEMATOCRIT 32 % (33-45); HEMOGLOBIN 10.1 g/dL (11.5-14.8); LYMPHOCYTES # (AUTO) 3.6 /CMM (0.8-4.8); LYMPHOCYTES % (AUTO) 45.6 % (20.0-44.0); MEAN CORPUSCULAR HGB CONC 32 g/dl (31.0-36.0); MEAN CORPUSCULAR VOLUME 95 fL (82-100); MONOCYTES # (AUTO) 0.7 /CMM (0.1-1.30); MONOCYTES % (AUTO) 9.3 % (2.0-12.0); NEUTROPHILS # (AUTO) 3.4 /CMM (1.8-8.9); NEUTROPHILS % (AUTO) 42.9 % (43.0-81.0); PLATELET COUNT (AUTO) 311 /CMM (150-450); RED BLOOD CELL COUNT(AUTO) 3.37 MIL/uL (4.0-5.2); WHITE BLOOD COUNT (AUTO) 7.9 K/uL (4.3-11.0)
[2019-03-20 23:22] LABS: CALCIUM, SERUM 8.7 mg/dL (8.5-10.1); CARBON DIOXIDE 22 mmol/L (21-32); CHLORIDE 106 mmol/L (98-107); CREATININE 1.3 mg/dL (0.6-1.3); GLUCOSE 87 mg/dL (74-106); POTASSIUM 4.9 mmol/L (3.5-5.1); SODIUM SERUM 140 mmol/L (136-145); UREA NITROGEN, BLOOD 28 mg/dL (7-18)
--- NOTE | 2019-03-20 23:22 | NUR ---
PT REFUSED URINARY CATH
[2019-03-20 23:28] LABS: ALANINE AMINOTRANSFERASE 27 U/L (12-78); ALBUMIN 3.6 g/dL (3.4-5.0); ALKALINE PHOSPHATASE 113 U/L (46-116); ASPARTATE AMINOTRANSFERASE 40 U/L (15-37); BILIRUBIN,DIRECT 0.2 mg/dL (0.0-0.2); BILIRUBIN,TOTAL 0.4 mg/dL (0.2-1.0); TOTAL PROTEIN, SERUM 7.5 g/dL (6.4-8.2)
[2019-03-20 23:31] LABS: ABG BASE EXCESS -6.6 mmol/L; ABG OXYGEN SATURATION 96.8 % (92.0-98.5); ABG PCO2 43.3 mmHg (35.0-45.0); ABG PH 7.278 (7.350-7.450); ABG PO2 123.9 mmHg (75.0-100.0); AaDO2 53.6 mmHg; COHb 0.5 % (0.5-1.5); MetHb 0.3 % (0.0-1.5); SITE, ABG Left Radial; VENT MODE, BG Nasal Cannula
--- NOTE | 2019-03-20 23:43 | NUR ---
Stuart taken and analyzed. Results given to Dr Cardoza. No New orders given Per Dr Cardoza
--- NOTE | 2019-03-20 23:50 | NUR ---
UNABLE TO OBTAIN PERIPHERAL IV ACCESS. AWARE.
[2019-03-21] LABS: MAGNESIUM 2.3 mg/dL (1.8-2.4)
[2019-03-21] MEDS ORDERED: IV NS 0.9% 1,000 ML BAG IV ONE
[2019-03-21] MEDS ORDERED: VANCOMYCIN 1 GM in IV D5W 250 ML IV ONE ×2
[2019-03-21] MEDS ORDERED: PIPERACILLIN /TAZOBACTAM 3.375 G in IV D5W 50 ML IV ONE ×2
--- NOTE | 2019-03-21 00:04 | NUR ---
PT TAKEN TO RADIOLOGY [facility]IA [facility]
--- NOTE | 2019-03-21 00:21 | NUR ---
PT RETURNED FROM RADIOLOGY. PT TOLERATED WELL.
--- NOTE | 2019-03-21 00:46 | NUR ---
PT UNABLE TO PROVIDE URINE AT THIS TIME
--- NOTE | 2019-03-21 01:03 | NUR ---
UNABLE TO OBTAIN PERIPHERAL IV ACCESS. AWARE. TOLD TO CALL FOR PICC LINE NURSE.
--- NOTE | 2019-03-21 01:04 | NUR ---
NURSING SUP NOTIFIED TO CALL FOR PICC LINE NURSE
--- NOTE | 2019-03-21 01:34 | NUR ---
PHLEB AT BEDSIDE FOR BLOOD DRAW
--- NOTE | 2019-03-21 02:11 | NUR ---
CALLED [facility] FOR RADIOLOGY REPORT
--- NOTE | 2019-03-21 02:15 | NUR ---
FOLLOWED UP WITH NURSING ONCOLOGY RADIATION PHYSICIAN FOR PICC LINE NURSE. NO ETA FOR NOW.
--- NOTE | 2019-03-21 02:18 | NUR ---
CALLED RN SUP FOR TELE BED
--- NOTE | 2019-03-21 02:54 | NUR ---
PT ASSIGNED TO 322-2
--- NOTE | 2019-03-21 02:58 | NUR ---
CALLED [facility] FOR PANEL ADMISSION, WAITING FOR DR. RIVERA CALL BACK
--- NOTE | 2019-03-21 03:33 | NUR ---
PT ASSIGNED TO 323-2
--- NOTE | 2019-03-21 03:55 | NUR ---
DR SNOW AT BEDSIDE FOR CENTRAL LINE INSERTION
[2019-03-21] MEDS ORDERED: Z GUARD REMEDY 2 OZ OINT TP PRN (04:00)
[2019-03-21] MEDS ORDERED: ONDANSETRON HCL/PF 4 MG/2 ML VIAL IVP PRN (04:00)
[2019-03-21] MEDS ORDERED: MAG HYDROX/AL HYDROX/SIMETH 30 ML UDC PO PRN (04:00)
[2019-03-21] MEDS ORDERED: ZOLPIDEM TARTRATE 5 MG TABLET PO PRN (04:00)
[2019-03-21] MEDS ORDERED: MAGNESIUM HYDROXIDE 30 ML UDC PO PRN ×2 (04:00→14:30)
[2019-03-21] MEDS ORDERED: ACETAMINOPHEN 325 MG TABLET PO PRN (04:00)
--- NOTE | 2019-03-21 04:19 | NUR ---
CENTRAL LINE INSERTION COMPLETED
[2019-03-21] MEDS ORDERED: VANCOMYCIN 1 GM VIAL ONE (04:21)
[2019-03-21] MEDS ORDERED: PIPERACILLIN /TAZOBACTAM 3.375 G VIAL IV ONE (04:21)
--- NOTE | 2019-03-21 04:37 | NUR ---
RADIOLOGY AT BEDSIDE FOR XRAY
--- NOTE | 2019-03-21 05:35 | NUR ---
PT TAKEN TO THIRD FLOOR [facility]IA [facility]
[2019-03-21] MEDS ORDERED: PIPERACILLIN /TAZOBACTAM 4.5 G in IV D5W 50 ML IV SCH (06:00)
--- NOTE | 2019-03-21 07:43 | NUR ---
RN NOTES: -AT 520PM RECEIVED ENDORSEMENT FROM WOODY/ER, PT BROUGHT IN BY 911 FROM [facility], SHE WAS FOUND SNORING AND ALTERED WITH SOB, GIVEN NARCAN 2GRAM BY PARAMEDICS, SHE WAS ALAERT WHEN SHE REACH ER,A-, WITH PERIODS OF CONFUSION, HARD STICK, SHE HAS CENTRAL LINE ON RIGHT JUGULAR VEIN.PER ENDORSEMENT DX.ACUTE RESPIRATORY FAILURE AND ACUTE ACCIDENTAL OVERDOSE, PATIENT WAS STARTED ON LISTRIL, SHE RECEIVED ZOSYN AND VANCO IN er, THEN 2LITERS OF NORMAL SALINE ARE ONGOING. -AT 0535 PATIENT WAS ADMITTED FROM ER VIA GURNEY ACCOMPANIED BY 2 RN.A/O 1-2, ALERT TO NAME AND PLACE, SHE IS ON ARDIAC MONITOR, TELE PATIENT SR RATE=76, CENTRAL LINE INTACT WITH IVF ONGOING,UNABLE TO GET COMPLETE AND ACCURATE HISTORY PATIENT LOOKS VERY SLEEPY AND DROWSY, WHEN WE ASK DETAILS SHE STARTED TO GET IRRITATED BECAUSE SHE WANTS TO SLEEP, CONTINENT BOTH BOWEL AND BLADDER, USES BED WHITNEY, AGREE FOR BODY CHECK, DONE, BROWN PIGMENTATION ON THE LEFT BUTTOCKS, ABRASION ON THE MID BACK,THE REST ARE CLEAR AND INTACT.OREENTED TO UNIT AND STAFF, FALL SAFETY AND ASPIRATION PRECAUTION OBSERVED, BED LOW AND LOCKED, CALL LIGHT WITHIN EASY REACH.
--- NOTE | 2019-03-21 07:57 | NUR ---
APPLIER OPENING NOTES RECEIVED PT IN BED, AWAKE, A/O X2-3. TOLERATING RA, WITH NO ACUTE RESPIRATORY DISTRESS NOTED. PT DENIES ANY PAIN OR DISCOMFORT AT THIS TIME. ALSO DENIES CONCERNS OR QUESTIONS AT THIS MOMENT. ON TELEMONITORING SR, HR OF 7O. IVF NS AT 75ML/HR TO GEOVANNA CL, INTACT AND FLUID INFUSING WELL. PT KEPT COMFORTABLE. PT'S BED IN LOWEST, LOCKED POSITION WITH SRX3. CALL LIGHT KEPT WITHIN REACH. WILL CONTINUE PLAN OF CARE.
--- NOTE | 2019-03-21 07:58 | NUR ---
RN NOTES: ENDORSED TO MORNING SHIFT FOR CONTINUITY OF CARE.MRSA SWAB(RIGHT NARES) SPECIMEN OBTAINED AND SEND TO LAB
[2019-03-21 08:00] VITALS: BP 140/80
[2019-03-21 08:09] LABS: BASOPHILS % (AUTO) 0.6 % (0.0-2.0); EOSINOPHILS % (AUTO) 1.5 % (0.0-6.0); HEMATOCRIT 35 % (33-45); HEMOGLOBIN 10.9 g/dL (11.5-14.8); LYMPHOCYTES # (AUTO) 3.8 /CMM (0.8-4.8); LYMPHOCYTES % (AUTO) 47.6 % (20.0-44.0); MEAN CORPUSCULAR HGB CONC 31 g/dl (31.0-36.0); MEAN CORPUSCULAR VOLUME 95 fL (82-100); MONOCYTES # (AUTO) 0.8 /CMM (0.1-1.30); MONOCYTES % (AUTO) 10.2 % (2.0-12.0); NEUTROPHILS # (AUTO) 3.2 /CMM (1.8-8.9); NEUTROPHILS % (AUTO) 40.1 % (43.0-81.0); PLATELET COUNT (AUTO) 315 /CMM (150-450); WHITE BLOOD COUNT (AUTO) 7.9 K/uL (4.3-11.0)
[2019-03-21 08:51] LABS: ALBUMIN 3.2 g/dL (3.4-5.0); BILIRUBIN,TOTAL 0.5 mg/dL (0.2-1.0); CALCIUM, SERUM 8.2 mg/dL (8.5-10.1); CREATININE 0.9 mg/dL (0.6-1.3); PHOSPHORUS 3.9 mg/dL (2.5-4.9); POTASSIUM 4.3 mmol/L (3.5-5.1); TOTAL PROTEIN, SERUM 6.9 g/dL (6.4-8.2)
[2019-03-21] MEDS: HYDROCODONE/APAP 5/325MG 1 EACH TABLET PO PRN ×3 (09:00→20:44)
[2019-03-21] MEDS ORDERED: FEE PK DOSING 1 MIN EA MC ONE (09:16)
[2019-03-21] MEDS: PIPERACILLIN /TAZOBACTAM 3.375 G in IV D5W 100 ML IV SCH ×2 (09:59→17:19)
[2019-03-21] MEDS: IV NS 0.9% 1,000 ML IV PRN (10:07)
--- NOTE | 2019-03-21 12:47 | NUR ---
MS RN NOTES PT REQUESTED FOR DILAUDID FOR PAIN MEDICINE. PT STATING SHE DOESN'T WANT ANYTHING THAN DILAUDID WHENEVER SHE'S IN THE HOSPITAL, SHE WANTS TO GO HOME, AND PREFERS TO BE IN [facility] IF SHE REALLY NEEDS TO STAY AT THE HOSPITAL. SAMPLE TESTER OF DR URIAS MADE ROUNDS AND AWARE OF SITUATION. SAMPLE TESTER TO NOTIFY HOSPITALIST/DNP/TS.
--- NOTE | 2019-03-21 12:51 | NUR ---
MS RN NOTES PT HAS ALLERGY TO MORPHINE BUT PER PT SHE HAD TAKEN DILAUDID BEFORE AND THAT ONLY WORKS FOR HER WHENEVER SHE'S IN THE HOSPITAL. CONTRACT ADMINISTRATIVE ASSISTANT OF TS AWARE.
[2019-03-21] MEDS ORDERED: HYDROMORPHONE 1 MG/1 ML DISP.SYRIN IV ONE (13:00)
[2019-03-21 16:00] VITALS: BP 133/79
[2019-03-21] MEDS: METOPROLOL TARTRATE 25 MG TABLET PO SCH (16:13)
[2019-03-21] MEDS: VANCOMYCIN 0.75 GM in IV D5W 250 ML IV SCH (16:33)
[2019-03-21] MEDS ORDERED: LACTULOSE 10 G/15 ML UDC (PYXIS) PO PRN (17:00)
--- NOTE | 2019-03-21 17:00 | NUR ---
MS RN NOTES RECEIVED CALL FROM HOSPITALIST/DNP/TS MADE AWARE OF PT'S REQUESTS. HOSPITALIST IF PT WANTS TO GO AMA, HE SAID IT'S OKAY. MONIK/LUZMA AWARE WELL.
[2019-03-21] MEDS: MEGESTROL ACETATE SUSP 400 MG/10 ML UDC PO SCH (17:18)
[2019-03-21] MEDS: IBUPROFEN 400 MG TABLET PO SCH (17:18)
[2019-03-21] MEDS: DRONABINOL (2.5 MG) 2.5 MG CAPSULE PO SCH (17:19)
--- NOTE | 2019-03-21 18:35 | NUR ---
MS RN CLOSING NOTES PT IN BED, AWAKE, A/O X2-3. TOLERATING RA, WITH NO ACUTE RESPIRATORY DISTRESS NOTED. PT DENIES ANY PAIN OR DISCOMFORT AT THIS TIME. IVF NS AT 75ML/HR TO GEOVANNA CL, INTACT AND FLUID INFUSING WELL. ALL NEEDS ATTENDED, PT KEPT COMFORTABLE. PT'S BED IN LOWEST, LOCKED POSITION WITH SRX3. CALL LIGHT KEPT WITHIN REACH. WILL ENDORSE TO INCOMING NIGHT NURSE FOR TOSHIA.
[2019-03-21 20:00] VITALS: BP 130/73
[2019-03-21] MEDS: LATANOPROST EYE DROP 0.005% 2.5 ML BOTTLE EACHEYE SCH (21:14)
[2019-03-21] MEDS: GABAPENTIN 100 MG CAPSULE PO SCH (21:14)
[2019-03-21] MEDS ORDERED: MIRTAZAPINE 15 MG TABLET ONE (21:25)
[2019-03-21] MEDS ORDERED: MIRTAZAPINE 45 MG TABLET PO SCH (22:00)
[2019-03-22] MEDS: PIPERACILLIN /TAZOBACTAM 3.375 G in IV D5W 100 ML IV SCH ×2 (01:36→09:00)
[2019-03-22] MEDS: VANCOMYCIN 0.75 GM in IV D5W 250 ML IV SCH (05:21)
[2019-03-22] MEDS: HYDROCODONE/APAP 5/325MG 1 EACH TABLET PO PRN (05:58)
--- NOTE | 2019-03-22 06:00 | NUR ---
MS RN NOTES PT REFUSED TO HAVE BLOOD DRAWN. EXPLAINED TO PT IMPORTANCE OF BLOOD DRAW IN HER POC BUT PT STILL REFUSED. WILL CONTINUE TO MONITOR.
--- NOTE | 2019-03-22 06:45 | NUR ---
MS RN NOTES AWAKE & RESPONSIVE. NOT IN ANY DISTRESS. NO SOB NOTED. DENIES ANY PAIN OR DISCOMFORT AT THIS TIME. WITH IVF INFUSING WELL. MONITORED ACCORDINGLY. CALL LIGHT WITHIN REACH. BED IN LOWEST POSITION. SR UP X 2 FOR SAFETY. WILL ENDORSE TO NEXT SHIFT.
--- NOTE | 2019-03-22 07:51 | NUR ---
RN OPENING NOTES PT SLEEPING IN BED. NO APPARENT S/S OF PAIN, DISTRESS OR SOB AT THIS TIME. SAFETY PRECAUTIONS IN PLACE, BED IN LOWEST LOCKED POSITION, X2 SIDE RAILS UP AND CALL LIGHT WITHIN REACH. WILL CONTINUE TO MONITOR.
[2019-03-22 08:00] VITALS: BP 176/89
[2019-03-22] MEDS: DRONABINOL (2.5 MG) 2.5 MG CAPSULE PO SCH ×2 (08:47→17:04)
[2019-03-22] MEDS: IBUPROFEN 400 MG TABLET PO SCH ×3 (08:47→17:05)
[2019-03-22] MEDS: DULOXETINE HCL 30 MG CAPSULE.DR PO SCH (08:47)
[2019-03-22] MEDS: MEGESTROL ACETATE SUSP 400 MG/10 ML UDC PO SCH ×2 (08:47→17:05)
[2019-03-22] MEDS: LIDOCAINE 5% (PATCH) 1 EA PATCH TP SCH (08:48)
[2019-03-22] MEDS: METOPROLOL TARTRATE 25 MG TABLET PO SCH ×2 (08:48→17:06)
[2019-03-22] MEDS ORDERED: DUEXIS PO SCH (09:30)
[2019-03-22] MEDS: CARISOPRODOL 350 MG TABLET PO SCH ×4 (10:18→20:49)
[2019-03-22] MEDS: oxyCODONE/APAP (5/325 MG) 1 UDTAB TABLET PO PRN ×3 (10:32→20:51)
[2019-03-22 13:33] LABS: BASOPHILS % (AUTO) 0.4 % (0.0-2.0); EOSINOPHILS % (AUTO) 0.2 % (0.0-6.0); HEMATOCRIT 39 % (33-45); HEMOGLOBIN 12.4 g/dL (11.5-14.8); LYMPHOCYTES # (AUTO) 1.9 /CMM (0.8-4.8); LYMPHOCYTES % (AUTO) 22.7 % (20.0-44.0); MEAN CORPUSCULAR HGB CONC 32 g/dl (31.0-36.0); MEAN CORPUSCULAR VOLUME 93 fL (82-100); MONOCYTES # (AUTO) 0.7 /CMM (0.1-1.30); MONOCYTES % (AUTO) 8.2 % (2.0-12.0); NEUTROPHILS # (AUTO) 5.7 /CMM (1.8-8.9); NEUTROPHILS % (AUTO) 68.5 % (43.0-81.0); PLATELET COUNT (AUTO) 347 /CMM (150-450); WHITE BLOOD COUNT (AUTO) 8.4 K/uL (4.3-11.0)
[2019-03-22 13:51] LABS: ALBUMIN 3.1 g/dL (3.4-5.0); BILIRUBIN,TOTAL 0.4 mg/dL (0.2-1.0); CALCIUM, SERUM 8.3 mg/dL (8.5-10.1); CREATININE 1.2 mg/dL (0.6-1.3); MAGNESIUM 1.9 mg/dL (1.8-2.4); PHOSPHORUS 3.1 mg/dL (2.5-4.9); POTASSIUM 4.4 mmol/L (3.5-5.1)
[2019-03-22] MEDS: LORAZEPAM 1 MG TABLET PO PRN (14:20)
[2019-03-22 16:00] VITALS: BP 138/82
[2019-03-22] MEDS: LACTOBACILLUS RHAMNOSUS GG 1 EACH CAP.SPRINK PO SCH (17:05)
--- NOTE | 2019-03-22 18:29 | NUR ---
RN CLOSING NOTES PT AWAKE AND RESTING IN BED. PATIENT'S ANXIETY AND PAIN MANAGED WITH PRN ATIVAN, NORCO, AND PERCOCET. PT HAS RIGHT AJ PICC LINE RUNNING NS@75ML/HR. ALL PATIENT NEEDS MET DURING SHIFT. SAFETY PRECAUTIONS IN PLACE, BED IN LOWEST LOCKED POSITION, X2 SIDE RAILS UP AND CALL LIGHT WITHIN REACH. WILL ENDORSE TO CERTIFIED OPHTHALMIC MEDICAL TECHNICIAN NURSE FOR CONTINUITY OF CARE.
--- NOTE | 2019-03-22 19:30 | NUR ---
MS RN OPENING NOTE RECEIVED PATIENT IN BED. A.O X3 -4. TOLERATING ROOM AIR. RESPIRATIONS ARE EVEN AND UNLABORED. NO SOB NOTED. DENIES PAIN AT THIS TIME. IV ACCESS IN [facility] PICC LINE PATENT AND RUNNING NS@75ML/HR. BED IS LOW AND LOCKED, SIDE RAILS UP X2, HOB ELEVATED 70 DEGREES. CALL LIGHT WITHIN REACH. WILL CONTINUE TO MONITOR.
[2019-03-22 20:00] VITALS: BP 137/74
[2019-03-22 20:16] VITALS: BP 137/74
--- NOTE | 2019-03-22 20:55 | NUR ---
MS RN NOTE ADMINISTERED PRN PERCOCET 5/325 FOR PAIN IN BACK 01/31. WILL CONTINUE TO MONITOR.
[2019-03-22] MEDS: LATANOPROST EYE DROP 0.005% 2.5 ML BOTTLE EACHEYE SCH (21:36)
[2019-03-22] MEDS: GABAPENTIN 100 MG CAPSULE PO SCH (21:37)
[2019-03-22] MEDS ORDERED: MIRTAZAPINE 15 MG TABLET PO SCH (22:00)
--- NOTE | 2019-03-22 23:05 | NUR ---
MS RN NOTE ADMINISTERED PRN AMBIEN 5MG PER PATIENTS REQUEST FOR SLEEP. WILL CONTINUE TO MONITOR.
[2019-03-23] MEDS: oxyCODONE/APAP (5/325 MG) 1 UDTAB TABLET PO PRN ×2 (01:23→09:50)
--- NOTE | 2019-03-23 01:25 | NUR ---
MS RN NOTE ADMINISTERED PRN PERCOCET 5/325 FOR PAIN 8/10 IN BACK. WILL CONTINUE TO MONITOR.
--- NOTE | 2019-03-23 06:30 | NUR ---
MS RN CLOSING NOTE PATIENT IN BED. A.O X3. REMAINS TOLERATING ROOM AIR. RESPIRATIONS ARE EVEN AND UNLABORED. NO SOB NOTED THROGHTUT SHIFT. NO APPARENT DISTRESS. ALL NURSING NEEDS MET. IV ACCESS MAINTAINED IN [facility] PICC LINE PATENT AND RUNNING NS@75ML/HR. BED REMAINSS LOW AND LOCKED, SIDE RAILS UP X2, HOB ELEVATED 50 DEGREES. CALL LIGHT WITHIN REACH. WILL ENDORSE TO NEXT SHIFT.
[2019-03-23] MEDS: IV NS 0.9% 1,000 ML IV PRN (06:51)
[2019-03-23 07:12] LABS: CALCIUM, SERUM 8.1 mg/dL (8.5-10.1); CREATININE 0.8 mg/dL (0.6-1.3); POTASSIUM 3.8 mmol/L (3.5-5.1)
[2019-03-23] MEDS: IBUPROFEN 400 MG TABLET PO SCH ×3 (07:59→08:22)
--- NOTE | 2019-03-23 07:59 | NUR ---
RN NOTES CLARIFIED ORDERS FOR 400MG MOTRIN AND 800MG MOTRIN. PER DR JOSUÉ JACOB TO HOLD 400MG.
[2019-03-23 08:00] VITALS: BP 163/88
[2019-03-23] MEDS: MEGESTROL ACETATE SUSP 400 MG/10 ML UDC PO SCH (08:22)
[2019-03-23] MEDS: CARISOPRODOL 350 MG TABLET PO SCH (08:22)
[2019-03-23] MEDS: DULOXETINE HCL 30 MG CAPSULE.DR PO SCH (08:22)
[2019-03-23] MEDS: LACTOBACILLUS RHAMNOSUS GG 1 EACH CAP.SPRINK PO SCH (08:22)
[2019-03-23] MEDS: DRONABINOL (2.5 MG) 2.5 MG CAPSULE PO SCH (08:23)
[2019-03-23] MEDS: LIDOCAINE 5% (PATCH) 1 EA PATCH TP SCH (08:23)
[2019-03-23 08:25] VITALS: BP 163/88
[2019-03-23] MEDS: METOPROLOL TARTRATE 25 MG TABLET PO SCH (08:25)
[2019-03-23] MEDS ORDERED: FAMOTIDINE (20 MG) 20 MG TABLET PO SCH (09:00)
[2019-03-23] MEDS: LORAZEPAM 1 MG TABLET PO PRN (09:06)
--- NOTE | 2019-03-23 11:59 | NUR ---
lab intern notes pt retuning to [facility]. pt stable at discharge. all patient belongings taken home with patient. AJ removed, and ID band removed. All discharge paperwork discussed, signed, and given to the patient. pt left hospital via ambulance. pt left unit at 1155.
== END 2019-03-23 12:00 | DRG 917 ==
LOC: ER 22:34 → TELE 03-21 03:35 → MED 03-21 08:34
PROVIDERS: ADMIT Nurse Practitioner Acute Care; ATTEND Internal Medicine
PROC: 02HV33Z Insertion of Infusion Device into Superior Vena Cava, Percutaneous Approach (ICD-10-PCS; principal; 2019-03-21)
PROC: B548ZZA Ultrasonography of Superior Vena Cava, Guidance (ICD-10-PCS; 2019-03-21)
DX: T40.601A Poisoning by unspecified narcotics, accidental (unintentional), initial encounter (principal); A41.9 Sepsis, unspecified organism; J96.02 Acute respiratory failure with hypercapnia; E87.2 Acidosis; B02.29 Other postherpetic nervous system involvement; F11.23 Opioid dependence with withdrawal; Y92.129 Unspecified place in nursing home as the place of occurrence of the external cause; E86.0 Dehydration; K59.00 Constipation, unspecified; E88.09 Other disorders of plasma-protein metabolism, not elsewhere classified; Z86.73 Personal history of transient ischemic attack (TIA), and cerebral infarction without residual deficits; G62.9 Polyneuropathy, unspecified; N18.9 Chronic kidney disease, unspecified; F41.9 Anxiety disorder, unspecified; F32.9 Major depressive disorder, single episode, unspecified; G47.9 Sleep disorder, unspecified; G89.29 Other chronic pain; M54.5 Low back pain; M06.9 Rheumatoid arthritis, unspecified; M19.90 Unspecified osteoarthritis, unspecified site; D64.9 Anemia, unspecified; I12.9 Hypertensive chronic kidney disease with stage 1 through stage 4 chronic kidney disease, or unspecified chronic kidney disease
CPT/HCPCS: 36415; 36600; 70450-TC; 71045-TC; 80048-TC; 80053-TC; 80061-TC; 80076-TC; 80202-TC; 82803-TC; 83605-TC; 83735-TC; 84100-TC; 84484-TC; 85025-TC; 85730-TC; 87040-TC; 87081-TC; C1751; G0378; G0480; J1170; J2543; J3370; J7030; J7060; Q0167

== ENCOUNTER 2022-06-18 16:26 | Emergency (ER) | payer OTHER ==
[~2022-06-18] VITALS: Ht 162.6 cm; Wt 55.3 kg
[~2022-06-18 16:26] MED LIST changes: -CODE118S4 PO; -DRON10CA8 PO; +LATA2.5D15 EACHEYE; -LATA2.5D7 EACHEYE; -MAGN400O6 PO; -METO25TA20 PO; -MIRT45TA83 PO; -OXYC30TA86 PO; -ZOLP5TAB8 PO; -[UNRECOGNIZED DRUG - CODE] PO
--- NOTE | 2022-06-18 16:45 | NUR ---
BIB [facility] C/O COUGH AND CHEST CONGESTION X 2 DAYS,TESTED (+) TO COVID 19 1 WEEK AGO.
--- NOTE | 2022-06-18 17:15 | NUR ---
AT BEDSIDE FOR EVAL.
[2022-06-18] MEDS ORDERED: ALBUTEROL FS 2.5 MG/3 ML VIAL.NEB NEB ONE (17:30)
[2022-06-18] MEDS ORDERED: IPRATROPIUM NEB FS 0.5 MG/2.5 ML AMPUL.NEB NEB ONE (17:30)
[2022-06-18] MEDS ORDERED: predniSONE 20 MG TABLET PO ONE (17:30)
[2022-06-18] MEDS ORDERED: GUAIFENESIN/D-METHORPHAN HB 5 ML UDC PO ONE (17:30)
[2022-06-18] MEDS ORDERED: KETOROLAC TROMETHAMINE INJ 30 MG/ML VIAL IM ONE (17:30)
[2022-06-18] MEDS ORDERED: IPRATROPIUM NEB FS 0.5 MG/2.5 ML AMPUL.NEB ONE (18:26)
[2022-06-18] MEDS ORDERED: ALBUTEROL FS 2.5 MG/0.5 ML VIAL.NEB ONE (18:26)
[2022-06-18] MEDS ORDERED: GUAIFENESIN/CODEINE 10 ML UDC ONE (18:38)
[2022-06-18] MEDS ORDERED: predniSONE 20 MG TABLET ONE (18:39)
[2022-06-18] MEDS ORDERED: KETOROLAC TROMETHAMINE INJ 30 MG/ML VIAL ONE (18:39)
[2022-06-18] MEDS ORDERED: GUAIFENESIN/D-METHORPHAN HB 5 ML UDC ONE (18:41)
[2022-06-18] MEDS ORDERED: Paxlovid PO (19:22)
[2022-06-18] MEDS ORDERED: ONDA4TAB11 PO (19:22)
[2022-06-18] MEDS ORDERED: TRAM-351 PO (19:22)
[2022-06-18] MEDS ORDERED: KETO10TA2 PO (19:22)
[2022-06-18] MEDS ORDERED: GUAI1TBM19 PO (19:22)
[2022-06-18] MEDS ORDERED: TRAMADOL HCL 50 MG TABLET PO ONE (19:30)
[2022-06-18] MEDS ORDERED: ONDANSETRON 4 MG TAB.RAPDIS SL ONE (19:30)
[2022-06-18] MEDS ORDERED: TRAMADOL HCL 50 MG TABLET ONE (19:34)
[2022-06-18] MEDS ORDERED: ONDANSETRON 4 MG TAB.RAPDIS ONE (19:34)
--- NOTE | 2022-06-18 21:40 | NUR ---
Patient discharged to home in stable condition. Written and verbal after care instructions given. Patient verbalizes understanding of instruction.
[2022-06-18 21:46] VITALS: BP 120/65
== END 2022-06-18 21:40 | disposition home or self-care (01) ==
LOC: ER 16:30
DX: U07.1 COVID-19 (principal); J06.9 Acute upper respiratory infection, unspecified; I10 Essential (primary) hypertension; Z90.710 Acquired absence of both cervix and uterus; Z88.8 Allergy status to other drugs, medicaments and biological substances; Z79.899 Other long term (current) drug therapy
CPT/HCPCS: 99284; 71045; 96372; 93005; 94640; J7512; J1885; Q0162